=== PATIENT | female | born 1985 | race Caucasian/White ===

== ENCOUNTER → 2016-07-30 | Outpatient (CLI) | payer BC ==
[2016-07-30 15:30] LABS: URINE APPEARANCE CLEAR (CLEAR); URINE BILIRUBIN NEG (NEG); URINE COLOR YELLOW; URINE EPITHELIAL CELL AUTO >30 /lpf (0-5); URINE NITRITE NEG (NEG); URINE SPECIFIC GRAVITY 1.013 (1.000-1.030); UROBILINOGEN NEG (NEG)
[2016-07-30 15:37] LABS: MANUAL MICROSCOPIC REQUIRED? NO; REVIEW REQ? NO
== END | disposition home or self-care (01) ==
LOC: C.LABSPEC 13:21
PROVIDERS: ATTEND Obstetrics & Gynecology
DX: R35.0 Frequency of micturition (principal)

== ENCOUNTER 2020-12-16 04:52 | Inpatient (IN) ==
--- NOTE | 2020-12-16 07:00 | Obstetrical Progress Note ---
Date of Service December 16, 2020 Assessment & Plan (1) : Plan: 35 y/o at 40 6/7 wga presents for r/o labor VSS Fetus cat 1, variability improved with repositioning r/o labor - SVE changed from the office, will have ambulate and recheck in a few hours Subjective 35 y/o at 40 6/7 wga presents w/ complaints of contractions. +FM; denies LOF, had a small amount of VB with wiping this AM but none in underwear on arrival. PNI: A1GDM AMA Hx precipitous delivery last , delivered in car Physical Exam Genitourinary: Manual OB Exam: + cervical dilation (3-4), + cervical effacement 80% and + station -2 OB Exam Monitor Tracing: + external FHT monitor used, + external uterine monitor used (q5-12) and + category I (135/mod/+accel/-decel) Results & Data ([facility]) Vital Signs (Past 12 Hours) Vital Signs Temp Pulse Resp BP 12/16/20 05:09 98.2 F 18 12/16/20 05:07 62 110/68 PG Care Time/CCT Total # of Minutes Spent Total Time Spent with Patient: Total time spent is greater than 50% in coordination of care (as documented) at patient's floor/unit and/or counseling patient: Coding Level of Care Code None Diagnoses Z34.90
[2020-12-16] MEDS ORDERED: OXYTOCIN 30 UNITS/500 ML BAG IV PRN ×3 (08:08→13:44)
[2020-12-16] MEDS ORDERED: BUPIVACAINE 0.25% 30 ML VIAL ONE (08:42)
[2020-12-16] MEDS ORDERED: ePHEDrine sulfate 50 MG/ML AMP ONE (08:42)
[2020-12-16] MEDS ORDERED: SODIUM CHLORIDE 0.9% INJ 10 ML VIAL ONE (08:42)
[2020-12-16] MEDS ORDERED: fentaNYL citrate 100 MCG/2 ML VIAL ONE (08:42)
[2020-12-16] MEDS ORDERED: fentaNYL 2MCG/ML ROPIVACAINE 1.25MG/ML 100 ML BAG EPI ONE (08:43)
[2020-12-16 08:44] LABS: Hematocrit (blood only) 40.3 % (37-47); Hemoglobin 13.6 g/dL (12.0-16.0); Mean Corpuscular Hemoglobin 31.8 pg (25-34); Mean Corpuscular Hgb Conc 33.7 g/dL (32-36); Mean Corpuscular Volume 94.2 fL (80-100); Mean Platelet Volume 10.1 fL (7.4-10.4); Platelet Count 228 K/uL (130-400); RDW Coefficient of Variation 13.7 % (11.5-14.5); RDW Standard Deviation 46.7 fL (36.4-46.3); Red Blood Count 4.28 M/uL (4.2-5.4); White Blood Count 9.15 K/uL (4.8-10.8)
[2020-12-16] MEDS: LACTATED RINGER'S 1,000 ML IV PRN ×2 (09:00→09:49)
--- NOTE | 2020-12-16 09:14 | History & Physical Report ---
Date of Service December 16, 2020 Assessment & Plan (1) : Plan: 35yo presenting with contractions every 10 min, dilation 5cm effacement 90% station -1 -Admit to L&D, anticipate -NPO except ice chips -Continuous FHTs -IV - LR, oxytocin, epidural -Labs: CBC, T&S, RPR -Plan to induce rupture of membranes History of Present Illness Chief Complaint: Primary Care Provider: Jaime Greene 35yo at 40 6/7 wks gestation presents to hospital with complaints of contractions. PMH gestational diabetes controlled by diet. She states her contractions occur every 10 min, complains of some nausea and bloody discharge, otherwise seated comfortably feels baby moving heartbeat detected on monitor. Patient would like an epidural. Her other children are 7 and 10 yo, last one was delivered in car. She has attended OB appointments regularly, takes vitamins at home. Est Delivery date: 12/10/20via LMP Blood Type: A+ Rubella Immune GBS- Hgb 13.6 today WBC 9.15 Hct 40.3% Plt 228 Chlamydia Neg Gonorrhoeae Neg HIV Neg HbSAg Neg VDRL/RPR Nonreactive Allergies Allergy/AdvReac Type Severity Reaction Status Date / Time No Known Allergies Allergy NONE Verified 12/12/20 08:45 Home Medications Medication Instructions Recorded Confirmed Type prenat.vits,shawna,[id number] 1 tab PO DAILY 04/22/20 12/16/20 History acetone (urine) test (Ketone Urine #50 ea 09/27/20 12/12/20 Rx Test) blood sugar diagnostic (OneTouch #150 ea 09/27/20 12/12/20 Rx Verio test strips) blood-glucose meter (OneTouch #1 ea 09/27/20 12/12/20 Rx Verio Flex meter) lancets 33 gauge (OneTouch Delica #150 ea 09/27/20 12/12/20 Rx Plus Lancet) Patient History Medical History Endometriosis History of chicken pox Marily Surgical History H/O breast augmentation H/O laparoscopy Hx of myringotomy Hx of tonsillectomy Family History Grandmother (Paternal) Diabetes Father Diabetes Denies family history of Ovarian cancer Breast cancer Colorectal cancer Social History Smoking Status: Former smoker Hx Alcohol Use: No Hx Substance Use: No Preferred Language: Polish Communication Ability: Effective 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 Denies breast pain. Denies dysuria. Denies headache or changes in vision. Physical Exam Physical Exam: General: Alert, oriented. No acute distress. Cardiac: Regular rate and rhythm, no murmurs/rubs/gallops. Respiratory: Clear to auscultation bilaterally a/p, no wheezes/rales/rhonchi. No increased work of breathing. Symmetrical chest rise. No respiratory distress. Pelvic: Dilation 5cm; Effacement 90%; Station -[address] Jj Lower Extremities: No lower extremity edema or swelling. No deep calf pain. Pascale's negative bilaterally Baseline:140 Variability:moderate Accelerations:none Decelerations:none Genitourinary: OB Exam Abdomen: + vertex, + estimated weight (7-8 pounds) and + irregular contractions (7-10 minutes) Manual OB Exam: + cervical dilation 5 cm, + cervical effacement 90% and + station -1 OB Exam Monitor Tracing: + external FHT monitor used, + external uterine monitor used, + category I and + normal FHT variability Results & Data ([facility]) Vital Signs (Past 12 Hours) Vital Signs Temp Pulse Resp BP Pulse Ox 12/16/20 08:59 76 100 12/16/20 07:07 85 109/70 12/16/20 05:09 36.8 C 18 12/16/20 05:07 62 110/68 Laboratory Results 12/16/20 Range/Units 08:31 WBC 9.15 (4.8-10.8) K/uL RBC 4.28 (4.2-5.4) M/uL Hgb 13.6 (12.0-16.0) g/dL Hct 40.3 (37-47) % MCV 94.2 (80-100) fL MCH 31.8 (25-34) pg MCHC 33.7 (32-36) g/dL RDW Std Deviation 46.7 H (36.4-46.3) fL RDW Coeff of Leona 13.7 (11.5-14.5) % Plt Count 228 (130-400) K/uL MPV 10.1 (7.4-10.4) fL Medications Administered Current Inpatient Medications Ephedrine Sulfate (Ephedrine Sulfate 50 Mg/Ml Amp) 10 mg IV Q5M PRN PRN Reason: Hypotension Stop: 12/17/20 09:17 Oxytocin (Pitocin) 30 units in 500 mls @ 333.333 mls/hr IV .Q1H30M PRN; Protocol PRN Reason: Bleeding Control Stop: 01/15/21 08:07 Lactated Ringer's (Lr) 1,000 mls @ 125 mls/hr IV .Q8H PRN; Protocol PRN Reason: L&D Protocol Stop: 12/18/20 08:07 Ondansetron HCl (Ondansetron Inj 2 Mg/Ml 2 Ml Vial) 4 mg IV Q6H PRN PRN Reason: Nausea And Vomiting Stop: 12/17/20 09:17 Code Status & VTE Plan Code Status Full Code VTE Prophylaxis Plan VTE Prophylaxis will be ordered: No Supervising Physician Co-Signing Physician Notes Resident Physician Supervision Note: I interviewed and examined the patient. Discussed with Dr. Rodrigues and agree with findings and plan as documented in the note. Any exceptions or clarifications are listed here: [None] Documented By: Cami Early MD, FACOG Resident Activity Tracking Resident Involvement: Resident Care Provided Care Provided: OB Delivery
[2020-12-16] MEDS ORDERED: NALBUPHINE HCL INJ 10 MG/ML AMP IV PRN (09:18)
[2020-12-16] MEDS ORDERED: ONDANSETRON INJ 2 MG/ML 2 ML VIAL IV PRN (09:18)
[2020-12-16] MEDS ORDERED: NALOXONE HCL 1 MG in SODIUM CHLORIDE 0.9% 1000ML 1,000 ML IV PRN (09:18)
[2020-12-16] MEDS ORDERED: fentaNYL 2MCG/ML ROPIVACAINE 1.25MG/ML 100 ML BAG EPI PRN (09:18)
[2020-12-16] MEDS ORDERED: NALOXONE HCL 0.4 MG/1 ML VIAL/CARP IV PRN (09:18)
[2020-12-16] MEDS ORDERED: ePHEDrine sulfate 50 MG/ML AMP IV PRN (09:18)
[2020-12-16] MEDS ORDERED: diphenhydrAMINE 50 MG/ML VIAL IV PRN (09:18)
--- NOTE | 2020-12-16 09:20 | Anesthesiology Consultation ---
Date of Service December 16, 2020 Assessment & Plan Chart Review Chart Review: Patient NOT seen in Pre Admission Testing and Acceptable Risk for Labor Epidural Consults Requested none ASA ASA2 Proposed Anesthesia Anesthesia Type: Labor Epidural Risk / Benefits Reviewed With: PT / POA / Parent / Guardian, Accepts Plan and Informed Consent Obtained History Height/Weight Height: 5 ft 2 in Weight: 64.41 kg Allergies Allergy/AdvReac Type Severity Reaction Status Date / Time No Known Allergies Allergy NONE Verified 12/12/20 08:45 Medications Home Medications Medication Instructions Recorded Confirmed Last Taken prenat.vits,shawna,[id number]-[id number] 1 tab PO DAILY 04/22/20 12/16/20 12/15/20 08:00 acetone (urine) test (Ketone Urine #50 ea 09/27/20 12/12/20 Unknown Test) blood sugar diagnostic (OneTouch #150 ea 09/27/20 12/12/20 Unknown Verio test strips) blood-glucose meter (OneTouch #1 ea 09/27/20 12/12/20 Unknown Verio Flex meter) lancets 33 gauge (OneTouch Delica #150 ea 09/27/20 12/12/20 Unknown Plus Lancet) Active Medications Generic Name Dose Route Start Last Admin Trade Name Freq PRN Reason Stop Dose Admin Lactated Ringer's 1,000 mls @ 125 mls/hr 12/16/20 08:08 12/16/20 09:00 Lr IV 12/18/20 08:07 999 mls/hr .Q8H PRN Administration L&D Protocol Protocol Past Medical History Medical History Endometriosis [facility] of [facility] Exercise / Class Metabolic Activity II 4-5 Yardwork/Stairs/Walk up hill Past Family History Family History Grandmother (Paternal) Diabetes Father Diabetes Denies family history of Ovarian cancer Breast cancer Colorectal cancer Past Surgical History Surgical History H/O breast augmentation H/O laparoscopy Hx of myringotomy Hx of tonsillectomy Past Anesthesia History No Hx of Anesthesia Complications and No Family Hx of Anesthesia Complications History of PONV No Hx of PONV and No Hx of Motion Sickness Social History Smoking Status: Former smoker Hx Alcohol Use: No Hx Substance Use: No Physical Exam Vital Signs Last Vital Signs Temp 36.8 C 12/16/20 05:09 Pulse 88 12/16/20 09:19 Resp 18 12/16/20 05:09 BP 123/80 12/16/20 09:14 Pulse Ox 100 12/16/20 09:19 Testing Laboratory Results 12/16/20 08:31
[2020-12-16] MEDS ORDERED: BENZOCAINE 20% AER SPR 82.5 GM CAN EXT PRN (13:44)
[2020-12-16] MEDS ORDERED: DIPHTHERIA/TETANUS/PERTUSSIS 0.5 ML SYR/VIAL IM ONE (13:44)
[2020-12-16] MEDS ORDERED: SUPERCREAM 0.870% 15 GM JAR EXT PRN (13:44)
[2020-12-16] MEDS ORDERED: HYDROCORTISONE ACETATE 25 MG SUPP PR PRN (13:44)
[2020-12-16] MEDS ORDERED: ACETAMINOPHEN 325 MG TAB PO PRN (13:44)
[2020-12-16] MEDS ORDERED: oxyCODONE/ACETAMINOPHEN 5mg/325mg TAB PO PRN (13:44)
--- NOTE | 2020-12-16 15:06 | Anesthesiology Progress Note ---
Date of Service December 16, 2020 Anesthesia Post Procedure Vital Signs Vital Signs: Temp Pulse Resp BP Pulse Ox 12/16/20 14:53 81 121/74 12/16/20 14:41 87 122/60 12/16/20 13:53 73 127/87 12/16/20 13:38 80 114/73 12/16/20 13:29 72 100 12/16/20 13:26 103 H 92 12/16/20 13:24 79 124/81 100 12/16/20 13:19 95 H 99 12/16/20 13:14 76 100 12/16/20 13:09 72 100 12/16/20 13:08 71 109/68 12/16/20 13:04 70 100 12/16/20 12:59 70 100 12/16/20 12:54 67 100 12/16/20 12:53 68 104/70 12/16/20 12:49 69 100 12/16/20 12:44 66 99 12/16/20 12:39 68 99/60 L 98 12/16/20 12:34 67 99 12/16/20 12:29 65 100 12/16/20 12:24 61 100 12/16/20 12:23 63 100/61 12/16/20 12:19 65 100 12/16/20 12:14 63 100 12/16/20 12:10 62 101/63 12/16/20 12:09 65 100 12/16/20 12:04 59 L 100 12/16/20 12:00 37.0 C 16 12/16/20 11:59 62 100 12/16/20 11:54 67 100 12/16/20 11:53 62 97/61 L 12/16/20 11:49 65 100 12/16/20 11:44 65 99 12/16/20 11:39 77 96/61 L 99 12/16/20 11:34 70 100 12/16/20 11:29 65 99 12/16/20 11:24 104 H 91/60 L 99 12/16/20 11:19 89 100 12/16/20 11:14 66 100 12/16/20 11:09 93 H 97/63 L 99 12/16/20 11:04 64 100 12/16/20 10:59 78 100 12/16/20 10:54 78 100 12/16/20 10:53 59 L 100/63 12/16/20 10:49 64 99 12/16/20 10:44 89 100 12/16/20 10:39 85 100 12/16/20 10:38 81 100/62 12/16/20 10:34 72 100 12/16/20 10:29 67 100 12/16/20 10:24 87 99 12/16/20 10:23 71 96/63 L 12/16/20 10:19 79 100 12/16/20 10:14 85 100 12/16/20 10:13 78 90 12/16/20 10:09 66 100 12/16/20 10:07 80 115/71 12/16/20 10:05 78 116/73 12/16/20 10:04 75 100 12/16/20 10:03 71 113/74 12/16/20 10:01 70 111/70 12/16/20 09:59 85 118/78 100 12/16/20 09:57 75 112/71 12/16/20 09:55 75 110/65 12/16/20 09:54 78 100 12/16/20 09:53 73 108/63 12/16/20 09:52 74 111/69 12/16/20 09:51 71 110/67 12/16/20 09:49 75 111/68 100 12/16/20 09:47 75 114/71 12/16/20 09:44 74 121/66 100 12/16/20 09:41 83 124/56 L 12/16/20 09:40 90 91 12/16/20 09:39 74 100 12/16/20 09:34 76 100 12/16/20 09:32 76 136/78 12/16/20 09:29 82 128/79 100 12/16/20 09:24 80 100 12/16/20 09:19 88 100 12/16/20 09:14 73 123/80 100 12/16/20 09:09 78 100 12/16/20 09:04 77 100 12/16/20 08:59 76 100 12/16/20 07:07 85 109/70 12/16/20 05:09 36.8 C 18 12/16/20 05:07 62 110/68 Transfer of Care Handoff Completed per policy Notes Mental Status: alert / awake / arousable and participated in evaluation Patient Amnestic to Procedure: No Nausea / Vomiting: adequately controlled Pain: adequately controlled Airway Patency, RR, SpO2: stable & adequate BP & HR: stable & adequate Hydration State: stable & adequate Neuraxial Anesthesia: was administered and sensory block is resolving Anesthetic Complications: no major complications apparent and Pt Satisfied with anesthetic care
--- NOTE | 2020-12-16 18:32 | Delivery Summary ---
Vaginal Delivery Summary Date of Service December 16, 2020 Vaginal Delivery Summary [facility] Patient is a 35-year-old 3 para 2-0-0-2 white female who had presented to labor and delivery with irregular contractions. She had cervical change and she received epidural analgesia which was effective. Membranes were ruptured for thin meconium stained fluid. Pitocin augmentation was begun and she progressed to full dilation. She pushed effectively over intact perineum for delivery of a viable male infant in direct occiput posterior presentation. The rest of the delivered easily, and was placed on the mother's abdomen for further attention and drying. The was vigorous and moving all 4 limbs. The placenta was expressed intact with a three-vessel cord. Perineum was intact with a superficial abrasion of the right labia which was not bleeding and therefore not repaired. bleeding was controlled with dilute Pitocin. Estimated blood loss was 250 cc. Mother and infant were doing well after delivery. [facility] [place] Charge Vaginal Delivery Codes: 30036 global code for the antepartum, delivery, and post- Delivery Type Details: [facility]
[2020-12-16] MEDS: IBUPROFEN 600 MG TAB PO PRN (20:02)
[2020-12-16] MEDS: DOCUSATE SODIUM 100 MG CAP PO SCH (22:10)
[2020-12-17 06:26] LABS: Hematocrit (blood only) 34.6 % (37-47); Hemoglobin 11.5 g/dL (12.0-16.0); Mean Corpuscular Hemoglobin 31.4 pg (25-34); Mean Corpuscular Hgb Conc 33.2 g/dL (32-36); Mean Corpuscular Volume 94.5 fL (80-100); Platelet Count 206 K/uL (130-400); RDW Coefficient of Variation 13.6 % (11.5-14.5); RDW Standard Deviation 47.2 fL (36.4-46.3); Red Blood Count 3.66 M/uL (4.2-5.4); White Blood Count 10.24 K/uL (4.8-10.8)
[2020-12-17] MEDS: IBUPROFEN 600 MG TAB PO PRN (06:31)
--- NOTE | 2020-12-17 07:04 | Obstetrical Progress Note ---
Date of Service <Nadeen Rodrigues DO - Last Filed: 12/17/20 07:58> December 17, 2020 Assessment & Plan <Nadeen Rodrigues DO - Last Filed: 12/17/20 07:58> (1) Encounter for care and examination after delivery: 35yo Female post day 1, stable -hemoglobin 13.6 (8/2) -Blood type A+, GBS-, rubella immune -continue post care -continue regular diet -encourage breast feeding -vital signs review and WNL (Tmax 36.6) -Encourage ambulation, monitor and control pain with Motrin, Percocet PRN, resume regular diet, monitor lochia -patient awaiting baby circumcision and examination by pediatrics Day #:: 1 <Cami Early MD, FACOG - Last Filed: 12/17/20 08:28> (1) Encounter for care and examination after delivery: Subjective <Nadeen Rodrigues DO - Last Filed: 12/17/20 07:58> Ambulation: ambulating normally Voiding: no voiding problems Passing Gas:: No Diet Tolerance:: regular diet Lochia:: Small Feeding Type:: breast feeding Current Pain Level(1-10): 4 (pain well controlled on medication) Review of Systems Denies fever, chills, sweats Denies shortness of breath, difficulty breathing, chest pain, palpitations, chest pressure. Denies breast pain. Denies dysuria. Denies headache or changes in vision. Physical Exam <Nadeen Rodrigues DO - Last Filed: 12/17/20 07:58> General: Alert, oriented. No acute distress. Cardiac: Regular rate and rhythm, no murmurs/rubs/gallops. Respiratory: Clear to auscultation bilaterally a/p, no wheezes/rales/rhonchi. No increased work of breathing. Symmetrical chest rise. No respiratory distress. Abdomen: Soft, nontender, nondistended. Bowel sounds present. Uterus: Uterine fundus firm, palpable at umbilicus. Lower Extremities: No lower extremity edema or swelling. No deep calf pain. Pascale's negative bilaterally.. Results & Data ([facility]) <Nadeen Rodrigues DO - Last Filed: 12/17/20 07:58> Vital Signs (Past 12 Hours) Vital Signs Temp Pulse Resp BP Pulse Ox 12/17/20 03:25 36.6 C 61 16 105/69 12/17/20 00:00 36.7 C 76 16 101/64 97 Laboratory Results 12/17/20 12/16/20 12/16/20 Range/Units 05:59 09:45 09:45 WBC 10.24 (4.8-10.8) K/uL RBC 3.66 L (4.2-5.4) M/uL Hgb 11.5 L (12.0-16.0) g/dL Hct 34.6 L (37-47) % MCV 94.5 (80-100) fL MCH 31.4 (25-34) pg MCHC 33.2 (32-36) g/dL RDW Std Deviation 47.2 H (36.4-46.3) fL RDW Coeff of Leona 13.6 (11.5-14.5) % Plt Count 206 (130-400) K/uL MPV 10.0 (7.4-10.4) fL COVID-19 Eval Order Covid19 IDNow [facility] SARS-CoV-2, RNA, NAAT NEGATIVE (NEGATIVE) 12/16/20 Range/Units 08:31 WBC 9.15 (4.8-10.8) K/uL RBC 4.28 (4.2-5.4) M/uL Hgb 13.6 (12.0-16.0) g/dL Hct 40.3 (37-47) % MCV 94.2 (80-100) fL MCH 31.8 (25-34) pg MCHC 33.7 (32-36) g/dL RDW Std Deviation 46.7 H (36.4-46.3) fL RDW Coeff of Leona 13.7 (11.5-14.5) % Plt Count 228 (130-400) K/uL MPV 10.1 (7.4-10.4) fL COVID-19 Eval Order SARS-CoV-2, RNA, NAAT (NEGATIVE) Medications Administered Current Inpatient Medications Acetaminophen (Acetaminophen 325 Mg Tab) 650 mg PO Q6H PRN PRN Reason: Pain/HAND/Fever Stop: 01/15/21 13:43 Benzocaine (Benzocaine 20% Aer Spr 82.5 Gm Can) 1 appln EXT PRN PRN PRN Reason: Perineal Discomfort Stop: 01/15/21 13:43 Bisacodyl (Bisacodyl 5 Mg Tabec) 5 mg PO 1999 [facility] Stop: 12/17/20 20:01 Bisacodyl (Bisacodyl 10 Mg Supp) 10 mg [place] DAILY PRN PRN Reason: No BM on 2nd post- day Stop: 01/17/21 05:59 Cocaine HCl (Supercream 0.870% 15 Gm Jar) 1 gm EXT BID PRN PRN Reason: Hemorrhoidal Inflammation Stop: 12/30/20 13:43 Docusate Sodium (Docusate Sodium 100 Mg Cap) 100 mg PO DAILY@ [facility] Stop: 01/15/21 20:59 Last Admin: 12/16/20 22:10 Dose: 100 mg Documented by: Hydrocortisone (Hydrocortisone Acetate 25 Mg Supp) 25 mg [place] BID PRN PRN Reason: Hemorrhoidal Inflammation Stop: 01/15/21 13:43 Oxytocin (Pitocin) 30 units in 500 mls @ 333.333 mls/hr IV .Q1H30M PRN; Protocol PRN Reason: Bleeding Control Stop: 01/15/21 08:07 Lactated Ringer's (Lr) 1,000 mls @ 125 mls/hr IV .Q8H PRN; Protocol PRN Reason: L&D Protocol Stop: 12/18/20 08:07 Last Admin: 12/16/20 09:49 Dose: 125 mls/hr Documented by: Oxytocin (Pitocin) 30 units in 500 mls @ 7 mls/hr IV .Q24H PRN; Protocol PRN Reason: Labor Induction/Augmentation Stop: 12/18/20 10:08 Last Titration: 12/16/20 12:20 Dose: 0.42 units/hr, 7 mls/hr Documented by: Oxytocin (Pitocin) 30 units in 500 mls @ 333.333 mls/hr IV .Q1H30M PRN; Protocol PRN Reason: Bleeding Control Stop: 01/15/21 13:43 Ibuprofen (Ibuprofen 600 Mg Tab) 600 mg PO Q4H PRN PRN Reason: Pain/HAND/Cramping/Fever Stop: 01/15/21 13:43 Last Admin: 12/17/20 06:31 Dose: 600 mg Documented by: Oxycodone/Acetaminophen (Oxycodone/Acetaminophen 5mg/325mg Tab) 1 tab PO Q4H PRN PRN Reason: Pain not relieved by... Stop: 12/30/20 13:43 Prenat Multivit/[place]/Iron/Folic Ac ( Vitamin 1 Tab) 1 tab PO DAILY@08 BRANDI Stop: 01/16/21 07:59 <Cami Early MD, FACOG - Last Filed: 12/17/20 08:28> Co-Signing Physician Notes Resident Physician Supervision Note: I interviewed and examined the patient. Discussed with Dr. Rodrigues and agree with findings and plan as documented in the note. Any exceptions or clarifications are listed here: [None] Documented By: Cami Early MD, FACOG Resident Activity Tracking <Nadeen Rodrigues DO - Last Filed: 12/17/20 07:58> Resident Involvement: Resident Care Provided Care Provided: OB Delivery
[2020-12-17] MEDS: PRENATAL VITAMIN 1 TAB PO SCH (08:03)
[2020-12-17] MEDS: DOCUSATE SODIUM 100 MG CAP PO SCH ×2 (08:03→20:12)
[2020-12-17] MEDS ORDERED: bisacodyL 5 MG TABEC PO SCH (20:00)
[2020-12-18] MEDS ORDERED: bisacodyL 10 MG SUPP PR PRN (06:00)
[2020-12-18 06:39] LABS: Hematocrit (blood only) 36.9 % (37-47); Hemoglobin 12.2 g/dL (12.0-16.0)
--- NOTE | 2020-12-18 07:25 | Obstetrical Progress Note ---
Date of Service <Nadeen Rodrigues - Last Filed: 12/18/20 07:25> December 18, 2020 Assessment & Plan <Nadeen Rodrigues - Last Filed: 12/18/20 07:25> (1) Encounter for care and examination after delivery: 35yo Female post day 2, stable -hemoglobin 13.6-->11.5 (8/3) -Blood type A+, GBS-, rubella immune -continue post care -continue regular diet -encourage breast feeding -vital signs review and WNL (Tmax 36.8) -Encourage ambulation, monitor and control pain with Motrin, tylenol PRN, monitor lochia -discharge was discussed with the patient Day #:: 2 <Debbie Castellanos MD, FACOG - Last Filed: 12/18/20 08:07> (1) Encounter for care and examination after delivery: Subjective <Nadeen Ravi - Last Filed: 12/18/20 07:25> Ambulation: ambulating normally Voiding: no voiding problems Passing Gas:: Yes Diet Tolerance:: regular diet Lochia:: Small Feeding Type:: breast feeding Current Pain Level(1-10): 0 (pain well controlled on medication) Review of Systems Positive diarrhea Denies fever, chills, sweats Denies shortness of breath, difficulty breathing, chest pain, palpitations, chest pressure. Denies breast pain. Denies dysuria. Denies headache or changes in vision. Physical Exam <Nadeen Rodrigues - Last Filed: 12/18/20 07:25> General: Alert, oriented. No acute distress. Cardiac: Regular rate and rhythm, no murmurs/rubs/gallops. Respiratory: Clear to auscultation bilaterally a/p, no wheezes/rales/rhonchi. No increased work of breathing. Symmetrical chest rise. No respiratory distress. Abdomen: Soft, nontender, nondistended. Bowel sounds present. Uterus: Uterine fundus firm, palpable at umbilicus. Lower Extremities: No lower extremity edema or swelling. No deep calf pain. Pascale's negative bilaterally.. Results & Data ([facility]) <Nadeenjamila Rodrigues DO - Last Filed: 12/18/20 07:25> Vital Signs (Past 12 Hours) Vital Signs Temp Pulse Resp BP Pulse Ox 08/03/21 23:00 36.8 C 82 16 107/71 94 12/17/20 19:29 36.7 C 73 16 106/68 97 Laboratory Results 12/18/20 Range/Units 06:28 Hgb 12.2 (12.0-16.0) g/dL Hct 36.9 L (37-47) % Medications Administered Current Inpatient Medications Acetaminophen (Acetaminophen 325 Mg Tab) 650 mg PO Q6H PRN PRN Reason: Pain/HAND/Fever Stop: 01/15/21 13:43 Benzocaine (Benzocaine 20% Aer Spr 82.5 Gm Can) 1 appln EXT PRN PRN PRN Reason: Perineal Discomfort Stop: 01/15/21 13:43 Bisacodyl (Bisacodyl 10 Mg Supp) 10 mg [place] DAILY PRN PRN Reason: No BM on 2nd post- day Stop: 01/17/21 05:59 Cocaine HCl (Supercream 0.870% 15 Gm Jar) 1 gm EXT BID PRN PRN Reason: Hemorrhoidal Inflammation Stop: 12/30/20 13:43 Docusate Sodium (Docusate Sodium 100 Mg Cap) 100 mg PO DAILY@ [facility] Stop: 01/15/21 20:59 Last Admin: 12/17/20 20:12 Dose: 100 mg Documented by: Hydrocortisone (Hydrocortisone Acetate 25 Mg Supp) 25 mg [place] BID PRN PRN Reason: Hemorrhoidal Inflammation Stop: 01/15/21 13:43 Oxytocin (Pitocin) 30 units in 500 mls @ 333.333 mls/hr IV .Q1H30M PRN; Protocol PRN Reason: Bleeding Control Stop: 01/15/21 08:07 Lactated Ringer's (Lr) 1,000 mls @ 125 mls/hr IV .Q8H PRN; Protocol PRN Reason: L&D Protocol Stop: 12/18/20 08:07 Last Admin: 12/16/20 09:49 Dose: 125 mls/hr Documented by: Oxytocin (Pitocin) 30 units in 500 mls @ 7 mls/hr IV .Q24H PRN; Protocol PRN Reason: Labor Induction/Augmentation Stop: 12/18/20 10:08 Last Titration: 12/16/20 12:20 Dose: 0.42 units/hr, 7 mls/hr Documented by: Oxytocin (Pitocin) 30 units in 500 mls @ 333.333 mls/hr IV .Q1H30M PRN; Protocol PRN Reason: Bleeding Control Stop: 01/15/21 13:43 Ibuprofen (Ibuprofen 600 Mg Tab) 600 mg PO Q4H PRN PRN Reason: Pain/HAND/Cramping/Fever Stop: 01/15/21 13:43 Last Admin: 12/17/20 06:31 Dose: 600 mg Documented by: Oxycodone/Acetaminophen (Oxycodone/Acetaminophen 5mg/325mg Tab) 1 tab PO Q4H PRN PRN Reason: Pain not relieved by... Stop: 12/30/20 13:43 Prenat Multivit/[place]/Iron/Folic Ac ( Vitamin 1 Tab) 1 tab PO DAILY@08 BRANDI Stop: 01/16/21 07:59 Last Admin: 12/17/20 08:03 Dose: 1 tab Documented by: <Debbie Castellanos MD, FACOG - Last Filed: 12/18/20 08:07> Co-Signing Physician Notes Resident Physician Supervision Note: I interviewed and examined the patient. Discussed with Dr. Rodrigues and agree with findings and plan as documented in the note. Any exceptions or clarifications are listed here: Doing well. Routine care. d/c today. Instructions given. Documented By: Debbie Castellanos MD, FACOG Resident Activity Tracking <Nadeen Rodrigues DO - Last Filed: 12/18/20 07:25> Resident Involvement: Resident Care Provided Care Provided: OB Delivery
[2020-12-18] MEDS: DOCUSATE SODIUM 100 MG CAP PO SCH (08:17)
[2020-12-18] MEDS: PRENATAL VITAMIN 1 TAB PO SCH (08:17)
== END 2020-12-18 09:20 | disposition home or self-care (01) | DRG 807 ==
LOC: OPB 04:52 → 4S1 05:01 → 4S2 16:13